=== PATIENT | female | born 1995 | race Two or more races ===

== ENCOUNTER 2017-07-24 20:22 | Emergency (ER) | payer MEDICAID ==
[~2017-07-24] VITALS: Ht 162.6 cm; Wt 58.5 kg
[2017-07-24 20:35] VITALS: Ht 162.6 cm; Wt 58.5 kg
[2017-07-25 02:27] VITALS: BP 119/66
== END 2017-07-25 02:27 | disposition home or self-care (01) ==
LOC: ED 20:22
DX: N64.4 Mastodynia (principal)
CPT/HCPCS: 76641